=== PATIENT | female | born 1970 | race Caucasian/White ===

== ENCOUNTER 2024-08-03 16:58 | Observation (INO) ==
[2024-08-03 17:36] LABS: Basophils # (auto) 0.05 K/uL (0.00-0.20); Basophils % (auto) 0.2 %; Hematocrit (blood only) 43.3 % (37.0-47.0); Hemoglobin 15.2 g/dl (12.0-16.0); Immature Granulocytes # (auto) 0.21 K/uL (0.01-0.20); Immature Granulocytes % (auto) 0.9 %; Lymphocytes # (auto) 3.39 K/uL (1.20-3.40); Lymphocytes % (auto) 14.1 %; Mean Corpuscular Hgb Conc 35.1 g/dL (32.0-36.0); Mean Corpuscular Volume 88.2 fL (80.0-100.0); Mean Platelet Volume 11.1 fL (9.4-12.4); Monocytes # (auto) 0.71 K/uL (0.11-0.59); Neutrophils # (auto) 19.67 K/uL (1.40-6.50); Neutrophils % (auto) 81.8 %; Platelet Count 333 K/uL (130-400); RDW Coefficient of Variation 12.8 % (11.5-14.5); RDW Standard Deviation 41.3 fL (36.4-46.3); Red Blood Count 4.91 M/uL (4.20-5.40); White Blood Count 24.03 K/ul (4.8-10.8)
[2024-08-03 17:50] LABS: Albumin Globulin Ratio 1.2 (0.9-2); Albumin Level 4.8 gm/dl (3.4-5.0); Bilirubin,Total 0.6 mg/dl (0.2-1.0); Calcium 10.3 mg/dl (8.6-10.3); Creatinine Clr Calc Pharmacy 126.6 ml/min; Potassium 3.5 mmol/L (3.5-5.1); Total Protein 8.8 gm/dl (6.0-8.3)
[2024-08-03] MEDS: HYDROmorphone INJ 0.5 MG/0.5 ML SYR IV STA ×2 (18:29→21:58)
[2024-08-03] MEDS: HYDROmorphone INJ 1 MG/ML SYRINGE IM STA (18:29)
[2024-08-03] MEDS: ONDANSETRON 4 MG OD TAB PO STA (18:29)
--- NOTE | 2024-08-03 19:30 | CT Scan Report ---
Exam(s): CT L SPINE EXAM: CT Lumbar Spine Without Intravenous Contrast CLINICAL HISTORY: Reason for exam: R lumbar radiculopathy. TECHNIQUE: Axial computed tomography images of the lumbar spine without intravenous contrast. CTDI is 39 mGy and DLP is 1160 mGy-cm. Automated exposure control was utilized for the study. A dose lowering technique was utilized adhering to the principles of ALARA. COMPARISON: No relevant prior studies available. FINDINGS: There is a nonobstructing left kidney stone measuring 9 mm. There is no hydronephrosis bilaterally. Bones are demineralized. There are 5 nonrib-bearing lumbar vertebrae. There is normal lumbar lordosis, vertebral body height, and alignment. There is no evidence of acute fracture or traumatic subluxation. Sacroiliac joints are normally aligned and mildly degenerated. There is no evidence of acute sacral fracture. There is multilevel disc and facet degeneration. L1-L2: Disc degeneration with calcified disc bulge and facet degeneration. Mild canal stenosis. No foraminal narrowing. L2-L3: Disc degeneration with calcified disc bulge. Facet degeneration. Mild canal stenosis. No foraminal narrowing. L3-L4: Disc degeneration with calcified disc bulge. Facet degeneration and ligamentum flavum thickening. Mild-moderate spinal canal narrowing. Moderate-severe right and mild left foraminal narrowing. L4-L5: Disc degeneration, disc bulging, facet degeneration, ligamentum flavum thickening. Severe central canal narrowing. Severe bilateral foraminal narrowing. L5-S1: Disc degeneration and disc bulging. Facet degeneration. No significant spinal canal narrowing. Moderate-severe right foraminal narrowing. No left foraminal narrowing. IMPRESSION: 1. Multilevel disc and facet degeneration. 2. At L3-L4, mild-moderate spinal canal narrowing and moderate-severe right foraminal narrowing. 3. At L4-L5, severe canal and bilateral foraminal narrowing. 4. At L5-S1, moderate-severe right foraminal narrowing. Electronically signed by: Eloise Khan M.D. 08/03/24 19:30 PM
[2024-08-03] MEDS ORDERED: dexAMETHasone 10 MG in SYRINGE 0 ML IV ONE (23:49)
--- NOTE | 2024-08-04 00:02 | History & Physical Report ---
Date of Service August 04, 2024 Assessment & Plan (1) Lumbar back pain with radiculopathy affecting right lower extremity: (2) Multilevel neural foraminal stenosis: (3) Multilevel degenerative joint disease of spine: Plan The patient is a 53-year-old female with a past medical history including hypertension, obesity,, history of anaphylaxis, and history of chronic low back pain requiring pain medicine injections. She reports that she had been in her usual state state of chronic low-level pain until about 4 days ago, when she woke up with severe right sided low back pain into her right gluteus muscle, and right lower extremity down to her toes. She went to the emergency department at [facility] yesterday, was given a shot of steroid in her arm, shot of morphine IV, reported she had done well for few hours, but with worsening pain today, she came to the ED the at [facility] for assessment. #Intractable low back pain with right lower extremity radiculopathy- CT with multilevel central canal narrowing and foraminal stenosis Give dexamethasone 10 mg IV now, and this is milligrams IV every 12 hours Patient reports Dilaudid did not work as well as morphine Give morphine sulfate 4 mg IV every 3 hours as needed for moderate to severe pain Acetaminophen 650 mg by mouth every 6 hours as needed for mild pain or fever Lidoderm patch applied to the lumbar spine area Zofran 4 mg IV every 6 hours as needed Continue methocarbamol and gabapentin Consult orthopedic spine surgery Discussed the possibility of an MRI this evening, however, patient felt the pain was not well-controlled enough that she would be able to play through it at this time #Hypertension- Holding HCTZ due to borderline potassium of 3.5 Placed on NSS + KCl 20 mill equivalents at 100 mL/h x 1 L #Weight loss management- Hold semaglutide History of Present Illness Chief Complaint: The patient presents to the emergency department with intractable low back pain and right lower extremity radiculopathy, unimproved by prednisone, tramadol and methocarbamol prescribed at the ED yesterday. Primary Care Provider: NO PCP The patient is a 53-year-old female with a past medical history including hypertension, obesity,, history of anaphylaxis, and history of chronic low back pain requiring pain medicine injections. She reports that she had been in her usual state state of chronic low-level pain until about 4 days ago, when she woke up with severe right sided low back pain into her right gluteus muscle, and right lower extremity down to her toes. She went to the emergency department at [facility] yesterday, was given a shot of steroid in her arm, shot of morphine IV, reported she had done well for few hours, but with worsening pain today, she came to the ED the at [facility] for assessment. Allergies Allergy/AdvReac Type Severity Reaction Status Date / Time bee venom protein (honey bee) Allergy Severe Anaphylaxis Verified 08/03/24 23:10 oxycodone AdvReac Unknown Gastrointestinal Verified 08/03/24 23:10 Upset Home Medications Medication Instructions Recorded Confirmed Type albuterol sulfate 90 mcg/actuation 2 puff inhalation Q6H PRN 08/03/24 08/03/24 History aerosol inhaler Shortness Of Breath Or Wheezing epinephrine 0.3 mg/0.3 mL 0.3 mg IM UD PRN Anaphylaxis 08/03/24 08/03/24 History injection, auto-injector gabapentin 100 mg capsule 100 mg PO TID #90 caps 08/03/24 08/03/24 Rx (Neurontin) hydrochlorothiazide 25 mg tablet 25 mg PO QAM 08/03/24 08/03/24 History methocarbamol 500 mg tablet 500 mg PO TID 08/03/24 08/03/24 History prednisone 50 mg tablet 50 mg PO QAM 08/03/24 08/03/24 History semaglutide (weight loss) 0.25 0.25 mg subcut Q7D 08/03/24 08/03/24 History mg/0.5 mL subcutaneous pen injector tramadol 50 mg tablet 50 mg PO Q8 PRN Pain 08/03/24 08/03/24 History Past Med/Surg History Problem List (Updated 08/04/24 @ 05:04 by Masood Huber MD) 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 Lumbar back pain with radiculopathy affecting right lower extremity Lumbar radiculopathy (Acute) Social History Smoking Status: Never smoker Hx Alcohol Use: No Hx Substance Use: No Preferred Language: [place] 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 Beliefs That Will Affect Care: None Current Living Situation: Spouse Other Information That Helps Us Care for You: No Feels Safe at Home: Yes Safety Concerns: Feels Safe At This Time Assistive Devices: None Review of Systems Review of Systems: The patient denies chest pain, palpitations, shortness of breath, dyspnea on exertion, cough, lower extremity swelling, sore throat, fevers, chills, sweats, weight change, fatigue, nausea, vomiting, diarrhea , constipation, abdominal pain, pelvic pain, blood in urine or stool, dysuria, urinary frequency or urgency, lightheadedness, dizziness, headache, memory loss, loss of consciousness, rash, abnormal bruising or bleeding, imbalance, focal or generalized weakness, numbness or tingling in arms, generalized arthralgias or myalgias, neck pain, or night sweats. The review of systems is otherwise negative other than for that already noted above, and at least 10 systems have been reviewed. Physical Exam Physical Exam: The patient is awake, alert and oriented 3, well developed and well nourished, normocephalic and atraumatic, lying in bed and in no acute distress. HEENT--PERRL, EOMI, mucous membranes and oropharynx Neck--supple. No JVD. No bruits. Thyroid normal, trachea midline, no adenopathy. Heart--normal S1 and S2. No murmurs, rubs or gallops. Lungs--clear bilaterally, no respiratory distress, no accessory muscle use. Abdomen--normal bowel sounds and soft. Nontender. Nondistended, no hernias or masses, no organomegaly. Extremities--no cyanosis or clubbing. No edema. There are good distal pulses b/l. Dermatologic--normal skin turgor, normal color, no abnormal lymph nodes, no rash. Neurologic--cranial nerves II through XII grossly intact. Rheumatologic--limited exam due to low back and right lower extremity radicular pain Psychiatric--normal affect. Results & Data Results & Data Vital Signs (Past 12 Hours) Vital Signs Temp Pulse Pulse Resp BP BP Pulse Ox 08/03/24 23:00 71 17 109/78 95 08/03/24 21:00 76 18 97 08/03/24 19:00 83 17 132/87 93 08/03/24 17:27 100 H 22 159/100 H 93 08/03/24 17:11 36.6 C 104 H 20 164/106 H 93 O2 Del Method 08/03/24 23:00 Room Air 08/03/24 21:00 Room Air 08/03/24 19:00 Room Air 08/03/24 17:27 Room Air 08/03/24 17:11 Room Air Laboratory Results Laboratory Results WBC 24.03 K/ul (4.8-10.8) H 08/03/24 17:18 RBC 4.91 M/uL (4.20-5.40) 08/03/24 17:18 Hgb 15.2 g/dl (12.0-16.0) 08/03/24 17:18 Hct 43.3 % (37.0-47.0) 08/03/24 17:18 MCV 88.2 fL (80.0-100.0) 08/03/24 17:18 MCH 31.0 pg (25.0-34.0) 08/03/24 17:18 MCHC 35.1 g/dL (32.0-36.0) 08/03/24 17:18 RDW Std Deviation 41.3 fL (36.4-46.3) 08/03/24 17:18 RDW Coeff of Katelin 12.8 % (11.5-14.5) 08/03/24 17:18 Plt Count 333 K/uL (130-400) 08/03/24 17:18 MPV 11.1 fL (9.4-12.4) 08/03/24 17:18 Immature Gran % (Auto) 0.9 % 08/03/24 17:18 Neut % (Auto) 81.8 % 08/03/24 17:18 Lymph % (Auto) 14.1 % 08/03/24 17:18 Fannin % (Auto) 3.0 % 08/03/24 17:18 Eos % (Auto) 0.0 % 08/03/24 17:18 Baso % (Auto) 0.2 % 08/03/24 17:18 Neut # (Auto) 19.67 K/uL (1.40-6.50) H 08/03/24 17:18 Lymph # (Auto) 3.39 K/uL (1.20-3.40) 08/03/24 17:18 Fannin # (Auto) 0.71 K/uL (0.11-0.59) H 08/03/24 17:18 Eos # (Auto) 0.00 K/uL (0.00-0.50) 08/03/24 17:18 Baso # (Auto) 0.05 K/uL (0.00-0.20) 08/03/24 17:18 Immature Gran # (Auto) 0.21 K/uL (0.01-0.20) H 08/03/24 17:18 Sodium 139 mmol/L (136-145) 08/03/24 17:18 Potassium 3.5 mmol/L (3.5-5.1) 08/03/24 17:18 Chloride 102 mmol/L (98-107) 08/03/24 17:18 Carbon Dioxide 25 mmol/L (21-32) 08/03/24 17:18 Anion Gap 12 (3-11) H 08/03/24 17:18 BUN 17 mg/dl (6-23) 08/03/24 17:18 Creatinine 0.68 mg/dl (0.6-1.2) 08/03/24 17:18 Est Cr Clr Drug Dosing 126.6 ml/min 08/03/24 17:18 eGFR 103.43 08/03/24 17:18 BUN/Creatinine Ratio 25.0 (10-20) H 08/03/24 17:18 Glucose 132 mg/dl (70-99(Fasting)) H 08/03/24 17:18 Calcium 10.3 mg/dl (8.6-10.3) 08/03/24 17:18 Magnesium 2.0 mg/dl (1.7-2.4) 08/03/24 17:18 Total Bilirubin 0.6 mg/dl (0.2-1.0) 08/03/24 17:18 AST 30 U/L (13-39) 08/03/24 17:18 ALT 55 U/L (7-52) H 08/03/24 17:18 Alkaline Phosphatase 88 U/L (34-104) 08/03/24 17:18 Total Protein 8.8 gm/dl (6.0-8.3) H 08/03/24 17:18 Albumin 4.8 gm/dl (3.4-5.0) 08/03/24 17:18 Globulin 4.0 gm/dl (2.5-4.0) 08/03/24 17:18 Albumin/Globulin Ratio 1.2 (0.9-2) 08/03/24 17:[address] 08/03/24 18:14 Exam(s): CT L SPINE EXAM: CT Lumbar Spine Without Intravenous Contrast CLINICAL HISTORY: Reason for exam: R lumbar radiculopathy. TECHNIQUE: Axial computed tomography images of the lumbar spine without intravenous contrast. CTDI is 39 mGy and DLP is 1160 mGy-cm. Automated exposure control was utilized for the study. A dose lowering technique was utilized adhering to the principles of ALARA. COMPARISON: No relevant prior studies available. FINDINGS: There is a nonobstructing left kidney stone measuring 9 mm. There is no hydronephrosis bilaterally. Bones are demineralized. There are 5 nonrib-bearing lumbar vertebrae. There is normal lumbar lordosis, vertebral body height, and alignment. There is no evidence of acute fracture or traumatic subluxation. Sacroiliac joints are normally aligned and mildly degenerated. There is no evidence of acute sacral fracture. There is multilevel disc and facet degeneration. L1-L2: Disc degeneration with calcified disc bulge and facet degeneration. Mild canal stenosis. No foraminal narrowing. L2-L3: Disc degeneration with calcified disc bulge. Facet degeneration. Mild canal stenosis. No foraminal narrowing. L3-L4: Disc degeneration with calcified disc bulge. Facet degeneration and ligamentum flavum thickening. Mild-moderate spinal canal narrowing. Moderate-severe right and mild left foraminal narrowing. L4-L5: Disc degeneration, disc bulging, facet degeneration, ligamentum flavum thickening. Severe central canal narrowing. Severe bilateral foraminal narrowing. L5-S1: Disc degeneration and disc bulging. Facet degeneration. No significant spinal canal narrowing. Moderate-severe right foraminal narrowing. No left foraminal narrowing. IMPRESSION: 1. Multilevel disc and facet degeneration. 2. At L3-L4, mild-moderate spinal canal narrowing and moderate-severe right foraminal narrowing. 3. At L4-L5, severe canal and bilateral foraminal narrowing. 4. At L5-S1, moderate-severe right foraminal narrowing. Electronically signed by: Eloise Khan M.D. 08/03/24 19:30 PM Code Status & VTE Plan Code Status Full code VTE Prophylaxis Plan VTE Prophylaxis will be ordered: Yes PG Care Time/CCT Total # of Minutes Spent Total Time Spent with Patient: Total time spent is greater than 50% in coordination of care (as documented) at patient's floor/unit and/or counseling patient: Coding Level of Care Code 26338 INT INP/OBS CARE 3/75MIN Diagnoses Lumbar back pain with radiculopathy affecting right lower extremity M54.16 Multilevel neural foraminal stenosis M48.00 Multilevel degenerative joint disease of spine M47.819
[2024-08-04] MEDS ORDERED: ONDANSETRON INJ 2 MG/ML 2 ML VIAL IV PRN (01:30)
[2024-08-04] MEDS ORDERED: ALBUTEROL HFA 8 GM INHALER INH PRN (01:30)
[2024-08-04] MEDS: DEXAMETHASONE SOD INJ 4 MG/ML VIAL IV ONE (01:30)
[2024-08-04] MEDS: LIDOCAINE 5% 1 PATCH TD STA (01:30)
--- OUTSIDE RECORDS SUMMARY | 2024-08-04 01:45 | External Medical Summary | Summary of Care ---
Author Name Unknown Organization [facility] Address [address] [place] [address] Phone [phone] Care Team Providers Care Catering Director Name Role Phone Cindy Coffey PA-C Primary Care Provider Encounter Details Date Type Department Care Team (Late st Contact Info) Description 06/24/2024 Patient Reported Data Patient Survey [facility] Allergies Active Allergy Reactions Criticality Noted Date Comments Bee Venom Edema airway,Edema face/lips/tongue High 09/28/2022 Penicillins Rash 09/28/2022 documented as of this encounter (statuses as of 06/24/2024) Medications hydroCHLOROthiazid e 25 MG Oral Tablet (Hydrodiuril) Take 1 Tablet by mouth in the morning. 3 Active Wegovy 0.25 MG/0.5ML Subcutaneous Solution Auto-injector (Semaglutide-Weigh t Management) Inject under the skin. Weekly dosing Active Proventil HFA 108 (90 Base) MCG/ACT Inhalation Aerosol Solution Inhale by mouth. Active Acetaminophen 500 MG Oral Tablet (Tylenol) Take 2 Tablets by mouth every 8 hours as needed for Pain, Mild, Pain, Moderate or Pain, Severe. DO NOT EXCEED 6 TABS IN 24 HOURS. 60 Tablet 1 3 Active Capsaicin 0.025 % External Cream Apply topically to affected area 3 times a day. Apply to back of leg/back where painful. Keep away from incision 60 g 3 3 Active diazePAM 10 MG Oral Tablet (Valium)Indication s:Lumbar radiculopathy Take 1 tab hour prior to scheduled procedure 1 Tablet 3 Active documented as of this encounter (statuses as of 06/24/2024) Active Problems Problem Noted Date Diagnosed Date S/P total knee replacement, right 04/30/2023 documented as of this encounter (statuses as of 06/24/2024) Immunizations Name Administration Dates Next Due Seasonal Influenza, PF, 6 M & above, IM , (FluLaval or Fluzone) 07/10/2023 documented as of this encounter Social History Tobacco Use Types Packs/Day Years Used Date Smoking Tobacco: Former Cigarettes 0.5 3 1 988 - 1990 Smokeless Tobacco: Never Alcohol Use Standard Drinks/Week Comments Yes 0 (1 standard drink = 0.6 oz pur e alcohol) soc Comments No Sex and Gender Information Value Date Recorded Sex Assigned at Not on file Legal Sex Female 7:14 AM EST Gender Identity Not on file Sexual Orientation Not on file documented as of this encounter Functional Status * Are you deaf or do you have serious difficulty hearing? Answer Date of Assessment Author No 04/30/2023 4:09 PM EDMickey Arambula RN * Are you blind or do you have serious difficulty seeing, even when wearing glasses? Answer Date of Assessment Author No 04/30/2023 4:09 PM EDT Mickey Carter RN * Do you have serious difficulty walking or climbing stairs? (5 years old or older) Answer Date of Assessment Author No 05/01/2023 8:24 AM EDT Venessa Hall LSW * Do you have difficulty dressing or bathing? (5 years old or older) Answer Date of Assessment Author No 04/30/2023 4:09 PM Mickey Wilson RN * Because of a physical, mental, or emotional condition, do you have difficulty doing errands alone such as visiting a doctors office or shopping? (15 years old or older) Answer Date of Assessment Author No 04/30/2023 4:09 PM Mickey Wilson RN documented as of this encounter Mental Status * Because of a physical, mental, or emotional condition, do you have serious difficulty concentrating, remembering, or making decisions? (5 years old or older) Answer Entry Date Author No 04/30/2023 4:09 PM EDT Mickey Carter RN documented in this encounter Plan of Treatment Health Maintenance Due Date Last Done Comments Lipid Panel 1969 Depression Screening 1981 HIV Screening 1984 Hepatitis C Screening 1987 DTap/Tdap Vaccines (1 - Tdap) 1988 Hepatitis B Vaccine (1 of 3 - 19+ 3-dose series) 1988 Pap Smear 1990 Cervical Cancer Screening 1999 HPV/Co-Test 1999 Mammogram 2009 Cologuard 2014 Colonoscopy 2014 Colorectal Cancer Screening 2014 Fecal Occult Blood Test 2014 Sigmoidoscopy 2014 Zoster Vaccines (1 of 2) 2019 COVID-19 Vaccine ( season) 2024 Influenza Vaccine (FLU shot) (#1) 2024 07/10/2023, 06/18/2003 Diabetes Screening 05/03/2026 05/03/2023, 0 05/02/2023, 05/01/2023, Additional history exists HPV (Gardasil) Vaccine Aged Out No lo nger eligible based on patient's age to complete this topic MENINGOCOCCAL (MENACTRA/MENVEO) Aged Out No longer eligible based on patient's age to complete this topic Pneumococcal Vaccine: Pediatrics (0 to 5 Years) and At-Risk Patients (6 to 64 Years) Aged Out No longer eligible based on patient's age to complete this topic documented as of this encounter Medical Devices Implanted Type Area Slag Production Worker Device Identifier Shelf Expiration Date Model / Serial / Lot Baseplate #4 Tritanium - [id number] Implanted:Qty: 1 on 04/30/2023 by Behzad Das MD at OR [facility] Right: Knee JOSE : OR[employer] 01/14/2028 [id number] / / [id number] Knee Triathlon Bead No Adiran R 4 - [id number] Implanted:Qty: 1 on 04/30/2023 by Behzad Das MD at OR [facility] Right: Knee JOSE : [employer] 03/19/2028 [id number] / / [id number] Knee X3 Ins Pos Cs Sz4 9 - [id number] Implanted:Qty: 1 on 04/30/2023 by Behzad Das MD at OR [facility] Right: Knee JOSE : ORTH[employer] 02/05/2028 [id number] / / [id number] Triathlon Tritanium Asymmetric Patella Implanted:Qty: 1 on 04/30/2023 by Behzad Das MD at OR [facility] Right: Knee [employer] 03/20/2028 [id number] / / [id number] documented as of this encounter Advance Directives * Full Code (Latest Code Status on File) Date Activated Date Inactivated Comments 04/30/2023 1:31 PM 05/03/2023 7:13 PM This order r eflects the patients wishes and were consensually agreed upon. Question Answer Comments Discussion of Advance Direct frederick occurred with: Not Discussed due to patient's condition Care Teams Catering Director Relationship Specialty Start Date End Date Cindy Coffey PA-C [address] [id number] [place]uf [id number] PCP - General Physician Car Shagger 09/28/22 documented as of this encounter
--- NOTE | 2024-08-04 02:09 | Emergency Department Note ---
Impression & Plan Lumbar radiculopathy ED Provider Note CHIEF COMPLAINT: Back pain HISTORY OF PRESENT ILLNESS: This 53-year-old female patient past medical history of obesity, lumbar radiculopathy, hypertension presents to the emergency department with complaints of intractable right lower lumbar radiculopathy. The patient states she has had chronic back pain and has been followed by pain management. She was seen in the [place] ER yesterday and given an IM injection of steroids, muscle relaxer and pain management. She states she was discharged with a muscle relaxer and steroids, but today the pain has become severe. She was not able to get out of bed. She has not lost control of her bowels or her bladder. She denies any falls or recent trauma to the back. She denies fevers. REVIEW OF SYSTEMS: A review of systems was performed with positives and pertinent negatives listed in the history of present illness. 10 systems were reviewed and are otherwise negative. ALLERGIES: see below MEDICATIONS: see below PMH: see below SOCIAL HISTORY: see below DDx: Disc herniation, spinal stenosis, infectious etiology, muscular strain, Among others. PHYSICAL EXAM: Vital signs reviewed. General: Well-appearing 53-year-old female, in no significant distress. HEENT: No scleral icterus, PERRLA, neck supple. Moist mucous membranes. Cardiovascular: Regular rate and rhythm, no extra sounds. Pulmonary: Clear to auscultation bilaterally, normal work of breathing. Abdomen: Soft, obese, nontender, nondistended, positive bowel sounds. Musculoskeletal: Atraumatic, no peripheral edema. Some discomfort to palpation over the right buttock. Full strength in the bilateral lower extremities. Neurologic: Patient awake alert and oriented x 3, speech is clear Skin: Warm, dry, no rash EMERGENCY DEPARTMENT COURSE/MDM: [] MONITORING: An order for cardiac monitoring was placed and the patient is noted to be in a normal sinus rhythm at 71 beats per minute. RADIOLOGY: Lumbar spine CT per radiology: IMPRESSION: 1. Multilevel disc and facet degeneration. 2. At L3-L4, mild-moderate spinal canal narrowing and moderate-severe right foraminal narrowing. 3. At L4-L5, severe canal and bilateral foraminal narrowing. 4. At L5-S1, moderate-severe right foraminal narrowing. DISPOSITION: Admission Past Med/Surg History Problem List Lumbar radiculopathy (Acute) Social History Smoking Status: Never smoker Preferred Language: Uruguayan Feels Safe at Home: Yes Allergies Allergies Allergy/AdvReac Type Severity Reaction Status Date / Time bee venom protein (honey bee) Allergy Severe Anaphylaxis Verified 08/03/24 23:10 oxycodone AdvReac Unknown Gastrointestinal Verified 08/03/24 23:10 Upset Home Meds Home Medications Medication Instructions Recorded Confirmed albuterol sulfate 90 mcg/actuation 2 puff inhalation Q6H PRN 08/03/24 08/03/24 aerosol inhaler Shortness Of Breath Or Wheezing epinephrine 0.3 mg/0.3 mL 0.3 mg IM UD PRN Anaphylaxis 08/03/24 08/03/24 injection, auto-injector hydrochlorothiazide 25 mg tablet 25 mg PO QAM 08/03/24 08/03/24 methocarbamol 500 mg tablet 500 mg PO TID 08/03/24 08/03/24 prednisone 50 mg tablet 50 mg PO QAM 08/03/24 08/03/24 semaglutide (weight loss) 0.25 0.25 mg subcut Q7D 08/03/24 08/03/24 mg/0.5 mL subcutaneous pen injector tramadol 50 mg tablet 50 mg PO Q8 PRN Pain 08/03/24 08/03/24 Previous Rx's Medication Instructions Recorded gabapentin 100 mg capsule 100 mg PO TID #90 caps 08/03/24 (Neurontin) Results & Data (ED) Vital Signs Vital Signs - 24 hr 08/03/24 17:11 08/03/24 17:27 08/03/24 19:00 Temperature 36.6 C Temperature Source Oral Pulse Rate 104 H Pulse Rate [Finger] 100 H 83 Pulse Rhythm [Finger] Regular Pulse Strength [Finger] Normal Respiratory Rate 20 22 17 Respiratory Effort / Characteristics Non-Labored Spontaneous Non-Labored Respiratory Depth Normal Normal Respiratory Pattern Regular Blood Pressure 164/106 H Blood Pressure [Left Arm] 159/100 H 132/87 Blood Pressure Mean 125 Blood Pressure Mean [Left Arm] 119 102 Blood Pressure Position Lying Blood Pressure Position [Left Arm] Lying Pulse Oximetry 93 93 93 Oxygen Delivery Method Room Air Room Air Room Air Sepsis Recent Fever Within 48 Hours No Sepsis New/Unexplained Change in Mental Status No Sepsis Action Taken by Nursing No Action Required 08/03/24 21:00 08/03/24 23:00 Temperature Temperature Source Pulse Rate Pulse Rate [Finger] 76 71 Pulse Rhythm [Finger] Pulse Strength [Finger] Respiratory Rate 18 17 Respiratory Effort / Characteristics Non-Labored Respiratory Depth Normal Respiratory Pattern Blood Pressure Blood Pressure [Left Arm] 109/78 Blood Pressure Mean Blood Pressure Mean [Left Arm] 88 Blood Pressure Position Blood Pressure Position [Left Arm] Pulse Oximetry 97 95 Oxygen Delivery Method Room Air Room Air Sepsis Recent Fever Within 48 Hours Sepsis New/Unexplained Change in Mental Status Sepsis Action Taken by [facility] Medications Current Medication List: was personally reviewed by me Laboratory Data Attestation: I reviewed the patient's lab results. 08/03/24 17:18 08/03/24 17:18 Lab Results 08/03/24 Range/Units 17:18 WBC 24.03 H (4.8-10.8) K/ul RBC 4.91 (4.20-5.40) M/uL Hgb 15.2 (12.0-16.0) g/dl Hct 43.3 (37.0-47.0) % MCV 88.2 (80.0-100.0) fL MCH 31.0 (25.0-34.0) pg MCHC 35.1 (32.0-36.0) g/dL RDW Std Deviation 41.3 (36.4-46.3) fL RDW Coeff of Katelin 12.8 (11.5-14.5) % Plt Count 333 (130-400) K/uL MPV 11.1 (9.4-12.4) fL Immature Gran % (Auto) 0.9 % Neut % (Auto) 81.8 % Lymph % (Auto) 14.1 % Lanier % (Auto) 3.0 % Eos % (Auto) 0.0 % Baso % (Auto) 0.2 % Neut # (Auto) 19.67 H (1.40-6.50) K/uL Lymph # (Auto) 3.39 (1.20-3.40) K/uL Lanier # (Auto) 0.71 H (0.11-0.59) K/uL Eos # (Auto) 0.00 (0.00-0.50) K/uL Baso # (Auto) 0.05 (0.00-0.20) K/uL Immature Gran # (Auto) 0.21 H (0.01-0.20) K/uL Sodium 139 (136-145) mmol/L Potassium 3.5 (3.5-5.1) mmol/L Chloride 102 (98-107) mmol/L Carbon Dioxide 25 (21-32) mmol/L Anion Gap 12 H (3-11) BUN 17 (6-23) mg/dl Creatinine 0.68 (0.6-1.2) mg/dl Est Cr Clr Drug Dosing 126.6 ml/min eGFR 103.43 BUN/Creatinine Ratio 25.0 H (10-20) Glucose 132 H (70-99(Fasting)) mg/dl Calcium 10.3 (8.6-10.3) mg/dl Magnesium 2.0 (1.7-2.4) mg/dl Total Bilirubin 0.6 (0.2-1.0) mg/dl AST 30 (13-39) U/L ALT 55 H (7-52) U/L Alkaline Phosphatase 88 (34-104) U/L Total Protein 8.8 H (6.0-8.3) gm/dl Albumin 4.8 (3.4-5.0) gm/dl Globulin 4.0 (2.5-4.0) gm/dl Albumin/Globulin Ratio 1.2 (0.9-2) Administered Medications Discontinued Medications Dexamethasone (Dexamethasone Sod Inj 4 Mg/Ml Vial) 10 mg IV ONE ONE Stop: 08/03/24 23:46 Last Admin: 08/04/24 01:30 Dose: 10 mg Documented By: PAG Hydromorphone HCl (Hydromorphone Inj 1 Mg/Ml Syringe) 1 mg IM NOW STA Stop: 08/03/24 18:13 Last Admin: 08/03/24 18:29 Dose: Not Given Documented By: LINDEN Hydromorphone HCl (Hydromorphone Inj 0.5 Mg/0.5 Ml Syr) 0.5 mg IV NOW STA Stop: 08/03/24 18:16 Last Admin: 08/03/24 18:29 Dose: 0.5 mg Documented By: LINDEN Hydromorphone HCl (Hydromorphone Inj 0.5 Mg/0.5 Ml Syr) 0.5 mg IV NOW STA Stop: 08/03/24 21:46 Last Admin: 08/03/24 21:58 Dose: 0.5 mg Documented By: JESSIE Lidocaine (Lidocaine 5% 1 Patch) 1 patch TD NOW STA Stop: 08/03/24 23:58 Last Admin: 08/04/24 01:30 Dose: 1 patch Documented By: IRVING Ondansetron HCl (Ondansetron 4 Mg Od Tab) 4 mg PO NOW STA Stop: 08/03/24 18:13 Last Admin: 08/03/24 18:29 Dose: 4 mg Documented By: LINDEN Imaging Data Radiologist's Impression: Lumbar Spine CT 08/03/24 18:14 Exam(s): CT L SPINE EXAM: CT Lumbar Spine Without Intravenous Contrast CLINICAL HISTORY: Reason for exam: R lumbar radiculopathy. TECHNIQUE: Axial computed tomography images of the lumbar spine without intravenous contrast. CTDI is 39 mGy and DLP is 1160 mGy-cm. Automated exposure control was utilized for the study. A dose lowering technique was utilized adhering to the principles of ALARA. COMPARISON: No relevant prior studies available. FINDINGS: There is a nonobstructing left kidney stone measuring 9 mm. There is no hydronephrosis bilaterally. Bones are demineralized. There are 5 nonrib-bearing lumbar vertebrae. There is normal lumbar lordosis, vertebral body height, and alignment. There is no evidence of acute fracture or traumatic subluxation. Sacroiliac joints are normally aligned and mildly degenerated. There is no evidence of acute sacral fracture. There is multilevel disc and facet degeneration. L1-L2: Disc degeneration with calcified disc bulge and facet degeneration. Mild canal stenosis. No foraminal narrowing. L2-L3: Disc degeneration with calcified disc bulge. Facet degeneration. Mild canal stenosis. No foraminal narrowing. L3-L4: Disc degeneration with calcified disc bulge. Facet degeneration and ligamentum flavum thickening. Mild-moderate spinal canal narrowing. Moderate-severe right and mild left foraminal narrowing. L4-L5: Disc degeneration, disc bulging, facet degeneration, ligamentum flavum thickening. Severe central canal narrowing. Severe bilateral foraminal narrowing. L5-S1: Disc degeneration and disc bulging. Facet degeneration. No significant spinal canal narrowing. Moderate-severe right foraminal narrowing. No left foraminal narrowing. IMPRESSION: 1. Multilevel disc and facet degeneration. 2. At L3-L4, mild-moderate spinal canal narrowing and moderate-severe right foraminal narrowing. 3. At L4-L5, severe canal and bilateral foraminal narrowing. 4. At L5-S1, moderate-severe right foraminal narrowing. Electronically signed by: Elosie Khan M.D. 08/03/24 19:30 PM Discharge Plan Visit Data Chief Complaint: Back Injury/Pain Stated Complaint: SCIATIC PAIN, NAUSEA, ED Provider: Gayla Bhakta Discharge Problem: Lumbar radiculopathy Patient Disposition: Home - Self-Care Condition: Good Discharge Instructions Interventions: ED Discharge Assessment Last Done: 08/04/24 01:30
[2024-08-04] MEDS: NSS + 20MEQ KCL 20 MEQ/1,000 ML BAG IV SCH (02:29)
[2024-08-04] MEDS: MoRPHine SULFATE 4 MG/ML 1 ML CARP\\VIAL IV PRN (02:29)
[2024-08-04 05:20] LABS: Basophils # (auto) 0.03 K/uL (0.00-0.20); Basophils % (auto) 0.2 %; Hematocrit (blood only) 40.3 % (37.0-47.0); Hemoglobin 13.8 g/dl (12.0-16.0); Immature Granulocytes # (auto) 0.13 K/uL (0.01-0.20); Immature Granulocytes % (auto) 0.8 %; Lymphocytes # (auto) 1.65 K/uL (1.20-3.40); Lymphocytes % (auto) 9.8 %; Mean Corpuscular Hemoglobin 30.5 pg (25.0-34.0); Mean Corpuscular Hgb Conc 34.2 g/dL (32.0-36.0); Monocytes # (auto) 0.41 K/uL (0.11-0.59); Monocytes % (auto) 2.4 %; Neutrophils # (auto) 14.63 K/uL (1.40-6.50); Neutrophils % (auto) 86.8 %; Platelet Count 263 K/uL (130-400); RDW Coefficient of Variation 13.2 % (11.5-14.5); RDW Standard Deviation 42.7 fL (36.4-46.3); Red Blood Count 4.53 M/uL (4.20-5.40); White Blood Count 16.85 K/ul (4.8-10.8)
[2024-08-04 05:42] LABS: Albumin Level 4.3 gm/dl (3.4-5.0); BUN Creatinine Ratio 28.1 (10-20); Calcium 9.4 mg/dl (8.6-10.3); Creatinine Clr Calc Pharmacy 134.5 ml/min; Magnesium 2.1 mg/dl (1.7-2.4); Phosphorus 2.4 mg/dl (2.5-4.9); Potassium 4.2 mmol/L (3.5-5.1)
[2024-08-04] MEDS: dexAMETHasone 6 MG in SYRINGE 0 ML IV SCH (08:33)
[2024-08-04] MEDS: GABAPENTIN 100 MG CAP PO SCH (08:34)
[2024-08-04] MEDS: METHOCARBAMOL 500 MG TABLET PO SCH (08:34)
--- NOTE | 2024-08-04 09:03 | History & Physical Bridge Note ---
Date of Service August 04, 2024 History & Physical Bridge Note I have examined the patient, reviewed the History & Physical and in the interval since the performance of the History & Physical I have noted the following changes of clinical significance: Case discussed with Dr. Weiss who saw patient this AM. He recommended pain control, deferring MRI and consulting pain management. Patient was frustrated and concerned about insurance coverage and requested a second opinion. Discussed care with orthopedic spine surgery, Dr. Martínez, via phone. He advised MRI due to concerning findings of severe stenosis noted on CT of lumbar spine. MRI ordered but patient has been having difficulty with pain control. D/C Morphine, trial Dilaudid 0.5mg IV q3 prn severe pain. Add Tylenol 1g po TID prn mild pain. She also has Robaxin ordered but has not been given in ER. Discussed with RN in ER, she will medicate patient 10 minutes prior to MRI with Ativan 1mg IV x1 + Dilaudid 0.5mg IV x1 in order to relax her to complete the study. Pt agreeable to this plan. Will plan for MRI @ 1700. Dr. Martínez to see patient in AM. Diet advanced as she would not be having any surgery today even if indicated. Continue steroids, pain control with Dilaudid as outlined above, PO APAP, and Robaxin. On exam, she is awake, alert and oriented. She has no diminished sensation in her RLE but c/o severe shooting pain with minimal movement down her RLE. She has no loss of bowel/bladder control. Her heart is regular and her lungs are clear. She has no had a BM x3 days but cannot tolerate sitting on toilet. Added Colace 200mg qHS. Consider rectal dulcolax suppository. BP accelerated but likely driven by pain. No other recommendations at this time. Plan d/w attending, Dr. Spence, who is in agreement.
--- NOTE | 2024-08-04 11:58 | Orthopedic Consultation ---
Date of Service August 04, 2024 Assessment & Plan (1) Multilevel degenerative joint disease of spine: (2) Lumbar back pain with radiculopathy affecting right lower extremity: History of Present Illness Reason for Consultation: Low back pain, right leg radicular symptoms. Requesting Physician: . Attending Physician: Pricila Spence MD 53-year-old female patient past medical history of obesity, lumbar radiculopathy, hypertension presented to the emergency department on 08/03 with complaints of intractable right lower lumbar radiculopathy. The patient states she has had chronic back pain and has been followed by pain management at [facility], she has had a change in insurance to [facility], does not follow with them any longer. Patient relates that her difficulties were with her insurance changing to [facility] and not getting in with other pain specialists. Her symptoms began on July 31 with a flareup, prior to that she was reasonably functional recovering from the right knee replacement, she was seen in the [place] ER yesterday and given an IM injection of steroids, muscle relaxer and pain manag ement which helped for a day then the symptoms returned. She states she was discharged with a muscle relaxer and steroids, but today the pain has become severe. She was not able to get out of bed. She has not lost control of her bowels or her bladder. She denies any falls or recent trauma to the back. Patient is status post a right knee replacement from April 2024. She notes the pain will start in her lower lumbar spine radiating to the posterior buttock posterior thigh and posterior calf, no left leg symptoms. Exam reveals the patient to gait pain lower lumbar spine, she has intact strength for EHL, ankle plantar dorsiflexion 5/5 in strength, but positive straight leg raise with a straightening of the right leg. If close all CT Lumbar Spine Without Intravenous Contrast 08/03/24 CLINICAL HISTORY: Reason for exam: R lumbar radiculopathy. TECHNIQUE: Axial computed tomography images of the lumbar spine without intravenous contrast. CTDI is 39 mGy and DLP is 1160 mGy-cm. Automated exposure control was utilized for the study. A dose lowering technique was utilized adhering to the principles of ALARA. COMPARISON: No relevant prior studies available. FINDINGS: There is a nonobstructing left kidney stone measuring 9 mm. There is no hydronephrosis bilaterally. Bones are demineralized. There are 5 nonrib-bearing lumbar vertebrae. There is normal lumbar lordosis, vertebral body height, and alignment. There is no evidence of acute fracture or traumatic subluxation. Sacroiliac joints are normally aligned and mildly degenerated. There is no evidence of acute sacral fracture. There is multilevel disc and facet degeneration. L1-L2: Disc degeneration with calcified disc bulge and facet degeneration. Mild canal stenosis. No foraminal narrowing. L2-L3: Disc degeneration with calcified disc bulge. Facet degeneration. Mild canal stenosis. No foraminal narrowing. L3-L4: Disc degeneration with calcified disc bulge. Facet degeneration and ligamentum flavum thickening. Mild-moderate spinal canal narrowing. Moderate- severe right and mild left foraminal narrowing. L4-L5: Disc degeneration, disc bulging, facet degeneration, ligamentum flavum thickening. Severe central canal narrowing. Severe bilateral foraminal narrowing. L5-S1: Disc degeneration and disc bulging. Facet degeneration. No significant spinal canal narrowing. Moderate-severe right foraminal narrowing. No left foraminal narrowing. IMPRESSION: 1. Multilevel disc and facet degeneration. 2. At L3-L4, mild-moderate spinal canal narrowing and moderate-severe right foraminal narrowing. 3. At L4-L5, severe canal and bilateral foraminal narrowing. 4. At L5-S1, moderate-severe right foraminal narrowing. Review of CT scan images lumbar spine from August 03, 2024 from [facility], this my separate interpretation, this reveals the patient to have multilevel degenerative changes, there is some canal narrowing which appears to be more notable at the L4-5 level, no evidence of fracture. Impression: 3-day history of increasing back pain and right leg sciatica type symptomatology with multilevel degenerative changes and stenosis. Plan: Today I discussed with the patient the findings on the CT scan, recommendations are for appropriate pain medication and mobilization with physical therapy, pain management consultation with the indicated for potentially the patient to undergo an epidural steroid type injection due to her having favorable response this in the past. Allergies Allergy/AdvReac Type Severity Reaction Status Date / Time bee venom protein (honey bee) Allergy Severe Anaphylaxis Verified 08/03/24 23:10 oxycodone AdvReac Unknown Gastrointestinal Verified 08/03/24 23:10 Upset Home Medications Medication Instructions Recorded Confirmed Type albuterol sulfate 90 mcg/actuation 2 puff inhalation Q6H PRN 08/03/24 08/03/24 History aerosol inhaler Shortness Of Breath Or Wheezing epinephrine 0.3 mg/0.3 mL 0.3 mg IM UD PRN Anaphylaxis 08/03/24 08/03/24 History injection, auto-injector gabapentin 100 mg capsule 100 mg PO TID #90 caps 08/03/24 08/03/24 Rx (Neurontin) hydrochlorothiazide 25 mg tablet 25 mg PO QAM 08/03/24 08/03/24 History methocarbamol 500 mg tablet 500 mg PO TID 08/03/24 08/03/24 History prednisone 50 mg tablet 50 mg PO QAM 08/03/24 08/03/24 History semaglutide (weight loss) 0.25 0.25 mg subcut Q7D 08/03/24 08/03/24 History mg/0.5 mL subcutaneous pen injector tramadol 50 mg tablet 50 mg PO Q8 PRN Pain 08/03/24 08/03/24 History Past Med/Surg History Problem List (Updated 08/04/24 @ 05:04 by Masood Huber MD) 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 Physical Exam . Results & Data Results & Data Laboratory Results . Diagnostic Findings . PG Care Time/CCT Total # of Minutes Spent Total Time Spent with Patient: Total time spent is greater than 50% in coordination of care (as documented) at patient's floor/unit and/or counseling patient: Coding Level of Care Code 66556 IN/OBS CONSULT LVL 3,45M Diagnoses Multilevel degenerative joint disease of spine M47.819 Lumbar back pain with radiculopathy affecting right lower extremity M54.16
[2024-08-04] MEDS: LORazepam 2 MG/1 ML VIAL IV STA (13:25)
[2024-08-04] MEDS: HYDROmorphone INJ 0.5 MG/0.5 ML SYR IV PRN (16:39)
[2024-08-04] MEDS: LORazepam 2 MG/1 ML VIAL IV ONE (16:44)
--- NOTE | 2024-08-04 19:24 | Magnetic Resonance Report ---
EXAM: MR lumbar spine wo con CLINICAL HISTORY: Severe lower back pain, no injury, sciatic pain also, unable to walk or stand without pain. TECHNIQUE: An MRI of the lumbar spine was performed without the administration of intravenous contrast. Sequences obtained include sagittal T1-weighted, T2-weighted, STIR (Short Tau Inversion Recovery), and axial T2-weighted sequences. COMPARISON: No previous studies are available for comparison. FINDINGS: Vertebral Alignment: Normal alignment of the lumbar spine without evidence of fracture or malalignment. Straightened lumbar lordosis denoting muscle spasms No evidence of scoliosis is observed. Subchondral degenerative marrow changes of the opposing vertebral endplates otherwise No marrow infiltrative lesions. Vertebral Bodies and Intervertebral Discs: Normal vertebral body height, no fracture identified. No lytic or sclerotic lesions. L4 small vertebral osseous hemangioma Intervertebral discs demonstrate reduced bright T2 signals denoting their degeneration. [id number] analysis: T12-L1: There is no significant disc pathology. No spinal canal stenosis. No neural foraminal stenosis. No ligamentum flavum hypertrophy and facet joint arthropathy. L1-L2: Central and right paracentral disc protrusion By 5.2 mm is seen gently abutting the ventral aspect of the thecal sac. No neural foraminal stenosis. Hypertrophied ligamentum flavum adds to the neural compromise with mild spinal canal stenosis, and mild facet joint arthropathy. L2-L3: Diffuse disc bulge 4.3 mm with bi-foraminal components is seen effacing the ventral epidural fat abutting the thecal sac and partly encroaching upon the inferior aspect of the related neural exit foramina with mild neural foraminal stenosis hypertrophied ligamentum flavum with mild bilateral facet arthropathy add more to the neural compromise, subsequent mild spinal canal stenosis is noted. L3-L4: Diffuse disc bulge 4.4 mm with bi-foraminal components is seen effacing the ventral epidural fat abutting the thecal sac and partly encroaching upon the inferior aspect of the related neural exit foramina with mild neural foraminal stenosis hypertrophied ligamentum flavum with mild bilateral facet arthropathy add more to the neural compromise, subsequent moderate spinal canal stenosis is noted. L4-L5: Diffuse disc bulge 3. 8 mm with bi-foraminal components is seen effacing the ventral epidural fat abutting the thecal sac and partly encroaching upon the inferior aspect of the related neural exit foramina with mild right and moderate left neural foraminal stenosis, hypertrophied ligamentum flavum with mild bilateral facet arthropathy add more to the neural compromise, subsequent severe spinal canal stenosis is noted. L5-S1: Central and right paracentral disc protrusion by 5.4 mm is seen gently abutting the ventral aspect of the thecal sac. Moderate right-sided neural foraminal stenosis. Hypertrophied ligamentum flavum adds to the neural compromise with mild spinal canal stenosis, and no significant facet joint arthropathy. Spinal Cord and Nerve Roots: Conus medullaris terminates at the L1 level without abnormality. Nerve roots appear unremarkable bilaterally. The lower thoracic spinal cord, conus medullaris, and cauda equina nerve roots are unremarkable. Soft Tissues: Paraspinal soft tissues appear normal without evidence of abnormal signal intensity or mass lesions. IMPRESSION: [id number] spondylotic changes showing multilevel degenerative disc disease most evident at L1-L2 /[id number].5.1.2 L4-L5 levels with acquired disco ligamentous canal tightness and neural foraminal compromise./OBX.5.1.2/OBX.5.1 Electronically signed by Cyndie Wells 08-04-2024 7:23 PM
[2024-08-04] MEDS: ACETAMINOPHEN 500 MG TAB PO PRN (23:25)
[2024-08-05 08:07] LABS: Basophils # (auto) 0.02 K/uL (0.00-0.20); Basophils % (auto) 0.1 %; Hemoglobin 13.4 g/dl (12.0-16.0); Immature Granulocytes # (auto) 0.22 K/uL (0.01-0.20); Immature Granulocytes % (auto) 1.3 %; Lymphocytes # (auto) 2.23 K/uL (1.20-3.40); Lymphocytes % (auto) 13.5 %; Mean Corpuscular Hemoglobin 30.3 pg (25.0-34.0); Mean Corpuscular Hgb Conc 33.5 g/dL (32.0-36.0); Mean Corpuscular Volume 90.5 fL (80.0-100.0); Mean Platelet Volume 11.3 fL (9.4-12.4); Monocytes # (auto) 0.87 K/uL (0.11-0.59); Monocytes % (auto) 5.3 %; Neutrophils # (auto) 13.18 K/uL (1.40-6.50); Neutrophils % (auto) 79.8 %; Platelet Count 268 K/uL (130-400); RDW Coefficient of Variation 13.1 % (11.5-14.5); RDW Standard Deviation 43.9 fL (36.4-46.3); Red Blood Count 4.42 M/uL (4.20-5.40); White Blood Count 16.52 K/ul (4.8-10.8)
[2024-08-05 08:14] LABS: Albumin Level 4.1 gm/dl (3.4-5.0); BUN Creatinine Ratio 31.7 (10-20); Calcium 9.1 mg/dl (8.6-10.3); Creatinine Clr Calc Pharmacy 136.7 ml/min; Magnesium 2.2 mg/dl (1.7-2.4); Phosphorus 2.4 mg/dl (2.5-4.9)
--- NOTE | 2024-08-05 09:49 | Hospitalist Progress Note ---
Date of Service August 05, 2024 Assessment & Plan (1) Multilevel degenerative joint disease of spine: (2) Multilevel neural foraminal stenosis: (3) Lumbar back pain with radiculopathy affecting right lower extremity: (4) Lumbar radiculopathy: (5) Essential hypertension: (6) Obesity: Plan The patient is a 53-year-old female with a past medical history including hypertension, obesity,, history of anaphylaxis, and history of chronic low back pain requiring pain medicine injections. She reports that she had been in her usual state state of chronic low-level pain until about 4 days ago, when she woke up with severe right sided low back pain into her right gluteus muscle, and right lower extremity down to her toes. She went to the emergency department at [facility] yesterday, was given a shot of steroid in her arm, shot of morphine IV, reported she had done well for few hours, but with worsening pain today, she came to the ED the at [facility] for assessment. #Intractable low back pain with right lower extremity radiculopathy- - CT with multilevel central canal narrowing and foraminal stenosis - s/p dexamethasone 10 mg IV x1, cont 6 mg IV every 12 hours - Patient reports Dilaudid did not work as well as morphine - Give morphine sulfate 4 mg IV every 3 hours as needed for moderate to severe pain - Acetaminophen 650 mg by mouth every 6 hours as needed for mild pain or fever - Lidoderm patch applied to the lumbar spine area - Zofran 4 mg IV every 6 hours as needed - Continue methocarbamol and gabapentin - Orthopedic spine surgery recs appreciated - pain management consulted for epidural injections #Hypertension- - potassium currently stable - resume HCTZ, if K trending down, switch to different antihypertensive agent - s/p NSS + KCl 20 mill equivalents at 100 mL/h x 1 L #Weight loss management- - Hold semaglutide Admission and Anticipated Discharge Date Admission Date: August 04, 2024 Subjective No acute overnight events Currently states that her pain is still present but improved and she is able to walk. She also requesting bowel regimen for constipation Review of Systems Review of Systems: Comprehensive ROS completed, no pertinent positives noted Physical Exam Physical Exam: Gen: NAD, lying in bed comfortable HEENT: NC/AT, MMM Lungs: CTAB CVS: s1s2 nl, RRR Abd: nl BS, mild epigastric TTP Ext: no edema Lower back: mild TTP Results & Data Results & Data Vital Signs (Past 12 Hours) Vital Signs Temp Pulse Resp BP Pulse Ox O2 Del Method 08/05/24 07:42 36.8 C 88 17 117/68 95 Room Air PG Care Time/CCT Total # of Minutes Spent Total Time Spent with Patient: Total time spent is greater than 50% in coordination of care (as documented) at patient's floor/unit and/or counseling patient: Coding Level of Care Code 45237 SUB INP/OBS CARE 3/50MIN Diagnoses Multilevel degenerative joint disease of spine M47.819 Multilevel neural foraminal stenosis M48.00 Lumbar back pain with radiculopathy affecting right lower extremity M54.16 Lumbar radiculopathy M54.16 Essential hypertension I10 Obesity E66.9
[2024-08-05] MEDS ORDERED: POLYETHYLENE (MIRALAX) 17 GM PACK PO PRN (10:41)
--- NOTE | 2024-08-05 11:10 | Orthopedic Consultation ---
Date of Consultation August 05, 2024 Assessment & Plan (1) Lumbar back pain with radiculopathy affecting right lower extremity: MRI and CAT scan of the lumbar spine available for review. They confirmed severe lumbar spinal stenosis. Areas of greatest concern would be the subarticular stenosis at L4-5 and L5-S1 on the right. Undoubtedly this is contributing to her symptom complex. I have discussed with the patient treatment plan. Surgery would be quite extensive in nature most likely require a lumbar decompression and fusion L4-L5 L5-S1. Prior to pursuit of such intervention I would like her to trial at least another epidural injection to see if this provides some at least temporary relief. I did explain the patient I will be out of town for the next week and will be very uncomfortable with any immediate surgery. She would like to pursue injections and will follow-up in our office in approximately 2 weeks to assess her progress. History of Present Illness Reason for Consultation: Right leg pain Attending Physician: Maricruz Marino MD History of Present Illness This is a very pleasant 53-year-old female who presents with 3 to 4 days of severe right leg pain. Rates in the buttock posterior lateral thigh extending to the lateral foot. It is incapacitating in nature. She does have a history of intermittent sciatica and back issues managed with epidural injections. They have been successful in the past. This most recent presentation is the worst symptom she has had yet. She had marked difficulty with standing and ambulation. This morning she states she has noted improvement with rest and steroids. She continues to deny any left lower extremity symptoms. 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 Allergies Allergy/AdvReac Type Severity Reaction Status Date / Time bee venom protein (honey bee) Allergy Severe Anaphylaxis Verified 08/03/24 23:10 oxycodone AdvReac Unknown Gastrointestinal Verified 08/03/24 23:10 Upset Home Medications Medication Instructions Recorded Confirmed Type albuterol sulfate 90 mcg/actuation 2 puff inhalation Q6H PRN 08/03/24 08/03/24 History aerosol inhaler Shortness Of Breath Or Wheezing epinephrine 0.3 mg/0.3 mL 0.3 mg IM UD PRN Anaphylaxis 08/03/24 08/03/24 History injection, auto-injector gabapentin 100 mg capsule 100 mg PO TID #90 caps 08/03/24 08/03/24 Rx (Neurontin) hydrochlorothiazide 25 mg tablet 25 mg PO QAM 08/03/24 08/03/24 History methocarbamol 500 mg tablet 500 mg PO TID 08/03/24 08/03/24 History prednisone 50 mg tablet 50 mg PO QAM 08/03/24 08/03/24 History semaglutide (weight loss) 0.25 0.25 mg subcut Q7D 08/03/24 08/03/24 History mg/0.5 mL subcutaneous pen injector tramadol 50 mg tablet 50 mg PO Q8 PRN Pain 08/03/24 08/03/24 History Patient History Social History Smoking Status: Never smoker Hx Alcohol Use: No Hx Substance Use: No Preferred Language: Portuguese Kiln Operator Required: No Beliefs That Will Affect Care: None Current Living Situation: Spouse Feels Safe at Home: Yes Assistive Devices: None Physical Exam Physical Exam: On exam she is in bed. She has reasonable sensation of testing lower extremities. Excellent strength testing plantarflexion dorsiflexion extensor houses longus. There is tension signs straight leg raise on the right no contralateral signs on the left. Results & Data Vital Signs (Past 12 Hours) Vital Signs Temp Pulse Resp BP Pulse Ox O2 Del Method 08/05/24 07:42 36.8 C 88 17 117/68 95 Room Air
[2024-08-05] MEDS: DOCUSATE SODIUM/SENNA 50/8.6MG TAB PO SCH (12:08)
[2024-08-05] MEDS: LIDOCAINE 5% 1 PATCH TD SCH (12:08)
[2024-08-05] MEDS: traMADol HCL 50 MG TABLET PO PRN (13:28)
[2024-08-06] MEDS: hydroCHLOROthiazide 25 MG TAB PO SCH (08:27)
[2024-08-06 08:29] LABS: Basophils # (auto) 0.03 K/uL (0.00-0.20); Basophils % (auto) 0.2 %; Hematocrit (blood only) 40.7 % (37.0-47.0); Hemoglobin 13.8 g/dl (12.0-16.0); Immature Granulocytes # (auto) 0.25 K/uL (0.01-0.20); Immature Granulocytes % (auto) 1.6 %; Lymphocytes # (auto) 2.55 K/uL (1.20-3.40); Lymphocytes % (auto) 16.5 %; Mean Corpuscular Hemoglobin 30.1 pg (25.0-34.0); Mean Corpuscular Hgb Conc 33.9 g/dL (32.0-36.0); Mean Corpuscular Volume 88.7 fL (80.0-100.0); Mean Platelet Volume 11.2 fL (9.4-12.4); Monocytes # (auto) 0.91 K/uL (0.11-0.59); Monocytes % (auto) 5.9 %; Neutrophils # (auto) 11.71 K/uL (1.40-6.50); Neutrophils % (auto) 75.8 %; Platelet Count 264 K/uL (130-400); RDW Coefficient of Variation 13.1 % (11.5-14.5); RDW Standard Deviation 42.5 fL (36.4-46.3); Red Blood Count 4.59 M/uL (4.20-5.40); White Blood Count 15.45 K/ul (4.8-10.8)
[2024-08-06 08:50] LABS: Albumin Level 4.1 gm/dl (3.4-5.0); BUN Creatinine Ratio 35.8 (10-20); Creatinine Clr Calc Pharmacy 162.4 ml/min; Magnesium 2.2 mg/dl (1.7-2.4); Phosphorus 2.7 mg/dl (2.5-4.9); Potassium 3.7 mmol/L (3.5-5.1)
--- NOTE | 2024-08-06 09:46 | Pain Management Consultation ---
Date of Consultation August 06, 2024 Assessment & Plan (1) Lumbar back pain with radiculopathy affecting right lower extremity: (2) Multilevel neural foraminal stenosis: (3) Multilevel degenerative joint disease of spine: (4) Lumbar radiculopathy: Plan 1. Tramadol was discontinued as she reports short term pain relief from the medication. 2. I have initiated the patient on hydrocodone 5/325 mg every 4 hours if needed for pain relief. 3. I have increased the Gabapentin dosage to 300mg TID. 4. We have discussed pursuing an L5-S1 interlaminar epidural steroid injection on as outpatient basis. This will be coordinated. 5. Recommend the patient continue to work on increasing her physical activity. Currently she is using a walker to ambulate to the bathroom, otherwise lying supine in the hospital bed throughout the day. 6. Patient does also have pain along the right SI joint, could consider right SI joint injection. History of Present Illness Attending Physician: Maricruz Marino MD History of Present Illness This is a 53-year-old female that is being seen in consultation at the [facility] for low back pain. She states that this pain has been ongoing for about 1 week without any specific injury. She has been seen at [facility] ER and received IM injection of steroids, muscle relaxer, and opioids. She states that better for the day and then the next day or so she went to [facility] emergency department and was admitted for the back pain. Pain is located along the lumbosacral junction and radiates to the right hip and along the lateral aspect of the thigh. There is numbness and tingling along the lateral aspect of right foot. She has previously seen pain management with received injections in the past but the patient states that was never this severe. She has not been able to follow-up with pain management due to her insurance changes. Currently she is receiving gabapentin 100 mg 3 times daily and tramadol. She denies any side effects from the gabapentin. She finds that the tramadol is slightly efficacious towards diminishing the pain but only last for about an hour. She has previously taken oxycodone which caused nausea. Currently she is only able to ambulate to the bathroom with the use of a walker, otherwise stays supine in the hospital bed. She denies any bowel/bladder, saddle anesthesia, foot drop, weakness, falls. Case discussed with Dr. Burnett Allergies Allergy/AdvReac Type Severity Reaction Status Date / Time bee venom protein (honey bee) Allergy Severe Anaphylaxis Verified 08/03/24 23:10 oxycodone AdvReac Unknown Gastrointestinal Verified 08/03/24 23:10 Upset Home Medications Medication Instructions Recorded Confirmed Type albuterol sulfate 90 mcg/actuation 2 puff inhalation Q6H PRN 08/03/24 08/03/24 History aerosol inhaler Shortness Of Breath Or Wheezing epinephrine 0.3 mg/0.3 mL 0.3 mg IM UD PRN Anaphylaxis 08/03/24 08/03/24 History injection, auto-injector gabapentin 100 mg capsule 100 mg PO TID #90 caps 08/03/24 08/03/24 Rx (Neurontin) hydrochlorothiazide 25 mg tablet 25 mg PO QAM 08/03/24 08/03/24 History methocarbamol 500 mg tablet 500 mg PO TID 08/03/24 08/03/24 History prednisone 50 mg tablet 50 mg PO QAM 08/03/24 08/03/24 History semaglutide (weight loss) 0.25 0.25 mg subcut Q7D 08/03/24 08/03/24 History mg/0.5 mL subcutaneous pen injector tramadol 50 mg tablet 50 mg PO Q8 PRN Pain 08/03/24 08/03/24 History Patient History Social History Smoking Status: Never smoker Hx Alcohol Use: No Hx Substance Use: No Preferred Language: Czech Coordinator Of Placement Required: No Beliefs That Will Affect Care: None Current Living Situation: Spouse Feels Safe at Home: Yes Assistive Devices: None Physical Exam Physical Exam: GENERAL: This is a morbidly obese 53 year old female in no acute distress. Laying supine in hospital bed during discussion. HEAD/FACE: Normocephalic and atraumatic. EYES: No drainage or conjunctival injection. ENT: Nose without bleeding or discharge. Oral mucosa moist. RESPIRATORY: Patient with unlabored breathing. No signs of respiratory distress. CHEST/AXILLA: Chest movement symmetrical. No deformities noted. ABDOMEN/GI: No distension BACK: Mild lumbosacral tenderness. Moderate right SI joint tenderness. No paravertebral, unpleasantness inform, gluteal, piriformis muscle spasm and or trigger points noted. SKIN: [place], warm and dry. No rash noted. MS/EXTREMITY: 5/5 strength of the lower extremities. Positive straight leg raise right negative on the left. NEURO: Alert and appears oriented. Speech is fluent. Cranial Nerves are grossly intact. PSYCH: Alert, pleasant, affect is calm Results (Pain Clinic) Diagnostic Review MRI Findings: MR lumbar spine wo con CLINICAL HISTORY: Severe lower back pain, no injury, sciatic pain also, unable to walk or stand without pain. TECHNIQUE: An MRI of the lumbar spine was performed without the administration of intravenous contrast. Sequences obtained include sagittal T1-weighted, T2-weighted, STIR (Short Tau Inversion Recovery), and axial T2-weighted sequences. COMPARISON: No previous studies are available for comparison. FINDINGS: Vertebral Alignment: Normal alignment of the lumbar spine without evidence of fracture or malalignment. Straightened lumbar lordosis denoting muscle spasms No evidence of scoliosis is observed. Subchondral degenerative marrow changes of the opposing vertebral endplates otherwise No marrow infiltrative lesions. Vertebral Bodies and Intervertebral Discs: Normal vertebral body height, no fracture identified. No lytic or sclerotic lesions. L4 small vertebral osseous hemangioma Intervertebral discs demonstrate reduced bright T2 signals denoting their degeneration. [id number] analysis: T12-L1: There is no significant disc pathology. No spinal canal stenosis. No neural foraminal stenosis. No ligamentum flavum hypertrophy and facet joint arthropathy. L1-L2: Central and right paracentral disc protrusion By 5.2 mm is seen gently abutting the ventral aspect of the thecal sac. No neural foraminal stenosis. Hypertrophied ligamentum flavum adds to the neural compromise with mild spinal canal stenosis, and mild facet joint arthropathy. L2-L3: Diffuse disc bulge 4.3 mm with bi-foraminal components is seen effacing the ventral epidural fat abutting the thecal sac and partly encroaching upon the inferior aspect of the related neural exit foramina with mild neural foraminal stenosis hypertrophied ligamentum flavum with mild bilateral facet arthropathy add more to the neural compromise, subsequent mild spinal canal stenosis is noted. L3-L4: Diffuse disc bulge 4.4 mm with bi-foraminal components is seen effacing the ventral epidural fat abutting the thecal sac and partly encroaching upon the inferior aspect of the related neural exit foramina with mild neural foraminal stenosis hypertrophied ligamentum flavum with mild bilateral facet arthropathy add more to the neural compromise, subsequent moderate spinal canal stenosis is noted. L4-L5: Diffuse disc bulge 3. 8 mm with bi-foraminal components is seen effacing the ventral epidural fat abutting the thecal sac and partly encroaching upon the inferior aspect of the related neural exit foramina with mild right and moderate left neural foraminal stenosis, hypertrophied ligamentum flavum with mild bilateral facet arthropathy add more to the neural compromise, subsequent severe spinal canal stenosis is noted. L5-S1: Central and right paracentral disc protrusion by 5.4 mm is seen gently abutting the ventral aspect of the thecal sac. Moderate right-sided neural foraminal stenosis. Hypertrophied ligamentum flavum adds to the neural compromise with mild spinal canal stenosis, and no significant facet joint arthropathy. Spinal Cord and Nerve Roots: Conus medullaris terminates at the L1 level without abnormality. Nerve roots appear unremarkable bilaterally. The lower thoracic spinal cord, conus medullaris, and cauda equina nerve roots are unremarkable. Soft Tissues: Paraspinal soft tissues appear normal without evidence of abnormal signal intensity or mass lesions. IMPRESSION: [id number].[id number] spondylotic changes showing multilevel degenerative disc disease most evident at L1-L2 /OBX.5.1.1OBX.5.1.2 L4-L5 levels with acquired disco ligamentous canal tightness and neural foraminal compromise./OBX.5.1.2/OBX.5.1 Electronically signed by Cyndie Wells 08-04-2024 7:23 PM
[2024-08-06] MEDS: HYDROCODONE/ACETAMOPHEN 5/325MG TAB PO PRN (11:18)
[2024-08-06] MEDS: GABAPENTIN 300 MG CAP PO SCH (14:17)
--- NOTE | 2024-08-06 16:53 | Discharge Summary ---
Discharge Summary Date of Service August 06, 2024 Principal Dx & Hospital Course #1 = Principal Diagnosis (1) Multilevel degenerative joint disease of spine: (2) Multilevel neural foraminal stenosis: (3) Lumbar back pain with radiculopathy affecting right lower extremity: (4) Lumbar radiculopathy: (5) Essential hypertension: (6) Obesity: Plan The patient is a 53-year-old female with a past medical history including hypertension, obesity,, history of anaphylaxis, and history of chronic low back pain requiring pain medicine injections. She reports that she had been in her usual state state of chronic low-level pain until about 4 days ago, when she woke up with severe right sided low back pain into her right gluteus muscle, and right lower extremity down to her toes. She went to the emergency department at [facility] yesterday, was given a shot of steroid in her arm, shot of morphine IV, reported she had done well for few hours, but with worsening pain today, she came to the ED the at [facility] for assessment. #Intractable low back pain with right lower extremity radiculopathy- - CT with multilevel central canal narrowing and foraminal stenosis - MRI reviewed - pain management recs appreciated, will discharge on norco and gabapentin , outpatient follow up for epidural injections - Lidoderm patch applied to the lumbar spine area - Orthopedic spine surgery recs appreciated, for further follow up #Hypertension- - potassium currently stable - resume HCTZ, if K trending down, switch to different antihypertensive agent - s/p NSS + KCl 20 mill equivalents at 100 mL/h x 1 L #Weight loss management- - Hold semaglutide Admission HPI Per Admitting Provider The patient is a 53-year-old female with a past medical history including hypertension, obesity,, history of anaphylaxis, and history of chronic low back pain requiring pain medicine injections. She reports that she had been in her usual state state of chronic low-level pain until about 4 days ago, when she woke up with severe right sided low back pain into her right gluteus muscle, and right lower extremity down to her toes. She went to the emergency department at [facility] yesterday, was given a shot of steroid in her arm, shot of morphine IV, reported she had done well for few hours, but with worsening pain today, she came to the ED the at [facility] for assessment. Discharge Exam Gen: NAD, lying in bed comfortable HEENT: NC/AT, MMM Lungs: CTAB CVS: s1s2 nl, RRR Abd: nl BS, mild epigastric TTP Ext: no edema Lower back: mild TTP Discharge Plan Discharge Items Patient Disposition: Home - Self-Care Reason For Visit: LBP, RLE RADICULOPATHY Discharge Diagnosis: Lower back pain RLE Radiculopathy Condition on Discharge: Good Activity: Resume your previous activity Activity Comment: as tolerated Non-emergency contact: Pain Management Call non-emergency contact if: your pain is not controlled Follow-up/Referrals: PCP,NO [Primary Care Provider] - Diet: Heart Healthy Addtl Attending Provider Instructions: 1. Follow up with Dr. Burnett (pain management) for epidural injection 2. If you are having worsening pain, please call Dr. Burnett's office for further medication adjustment 3. Follow up Dr. Emmett Martínez (orthopedics) for follow up regarding surgical intervention 4. If pain worsens, ok to take one extra dose of [place] and call pain management office immediately 5. Please monitor your potassium as outpatient. This will need to be done by your primary care doctor. 6. Follow up with your primary care doctor in about 7 to 10 days. Pending Studies at Discharge: No Stand-Alone Forms: My [facility] [employer] [facility], Smoking Cessation Medications and DC Order Prescriptions: New hydrocodone-acetaminophen 5-325 mg Tablet 1 tab PO Q4 PRN (Reason: pain) Qty: 90 0RF gabapentin 300 mg capsule 300 mg PO TID Qty: 90 0RF sennosides-docusate sodium [Senokot-S] 8.6-50 mg Tablet 1 tab PO BID Qty: 60 0RF lidocaine 5 % Adhesive Patch,Medicated 1 patch transdermal QAM Qty: 30 0RF Continued methocarbamol 500 mg tablet 500 mg PO TID Rx Instructions: 08/03/24 take for 5 days prednisone 50 mg tablet 50 mg PO QAM Rx Instructions: for 5 days starting 08/03/24 tramadol 50 mg tablet 50 mg PO Q8 PRN (Reason: Pain) hydrochlorothiazide 25 mg tablet 25 mg PO QAM albuterol sulfate 90 mcg/actuation Hfa Aerosol Inhaler 2 puff INHALATION Q6H PRN (Reason: Shortness Of Breath Or Wheezing) semaglutide (weight loss) 0.25 mg/0.5 mL Pen Injector 0.25 mg SUBCUT Q7D Rx Instructions: sundays epinephrine [Epi E-Z Pen] 0.3 mg/0.3 mL Auto-Injector 0.3 mg IM UD PRN (Reason: Anaphylaxis) Discharge Orders: Discharge Order (Routine); Ordered 08/06/24 Ordered By: Maricruz Marino Admission Data Admit Date/Time: 08/04/24 00:01 Attending Provider: Maricruz Marino Admit Provider: Masood Huber Primary Care Provider: PCP,NO Other Providers: Malcolm Pickett; Luís Weiss; Clifford Faith; Hazel Fowler; Ned Eastman; Syd Rojas; Masood Huber; Emmett Martínez; Cedrick Burnett Hospital Stay Data Consultations 08/03/24 23:41 ED Decision to Admit Stat 08/04/24 00:01 Consult Orthopedic Spine Surgery Routine 08/04/24 13:32 Consult Orthopedic Spine Surgery Routine 08/05/24 09:51 Consult Pain Management Routine Diagnostic Imagining Performed 08/03/24 18:14 CT lumbar spine wo con Stat 08/04/24 09:22 MRI Lumbar Spine [MR lumbar spine wo con] Urgent Pending Results Patient Have Any Pending Studies at Discharge: No Discharge Instructions Given to Patient (Per Discharging Provider) 1. Follow up with Dr. Burnett (pain management) for epidural injection 2. If you are having worsening pain, please call Dr. Burnett's office for further medication adjustment 3. Follow up Dr. Emmett Martínez (orthopedics) for follow up regarding surgical intervention 4. If pain worsens, ok to take one extra dose of [place] and call pain management office immediately 5. Please monitor your potassium as outpatient. This will need to be done by your primary care doctor. 6. Follow up with your primary care doctor in about 7 to 10 days. Total Time Total Time Spent Total Time Spent (In Minutes): 50 Coding Level of Care Code 78575 INP/OBS DISCH >30 MIN Diagnoses Multilevel degenerative joint disease of spine M47.819 Multilevel neural foraminal stenosis M48.00 Lumbar back pain with radiculopathy affecting right lower extremity M54.16 Lumbar radiculopathy M54.16 Essential hypertension I10 Obesity E66.9
== END 2024-08-06 17:59 | disposition home or self-care (01) ==
LOC: ED 16:58 → EDINP 16:58 → SUATTDRO 08-04 00:01 → 3N 08-04 01:30